=== PATIENT | female | born 1950 | race Caucasian/White ===

== ENCOUNTER → 2021-04-09 | Outpatient (CLI) | payer OTHER ==
[~2021-04-09] MED LIST: CALC600T PO; FLEXERIL; GLUC100018 PO; IBUP-1060 PO; OTHER
--- NOTE | 2021-04-09 13:07 | RAD ---
AP and Lateral Views of the Chest 04/09/2021 12:43 PM Indication: Reason: COPD Comparison: None Findings: Mild interstitial coarsening is seen. No focal infiltrate is identified. No pneumothorax or pleural effusion is seen. Heart size is normal. There is no evidence of pneumothorax or pleural effu lauri. Exaggerated thoracic kyphosis is seen secondary to chronic-appearing vertebral compression [facility] brady impression: 1. Nonspecific mild interstitial coarsening. 2. Exaggerated thoracic kyphosis secondary to chronic appearing thoracic vertebral body compression d eformities Electronically signed by: Daniel Hollins MD (04/09/2021 1:04 PM) [id number]
== END ==
LOC: RAD 12:31
PROVIDERS: ATTEND Internal Medicine Critical Care Medicine
DX: J44.9 Chronic obstructive pulmonary disease, unspecified (principal); M40.294 Other kyphosis, thoracic region
CPT/HCPCS: 71046

== ENCOUNTER → 2021-05-30 | Outpatient (CLI) | payer OTHER ==
--- NOTE | 2021-05-30 11:05 | RAD ---
PQRS Compliance Statement: One or more of the following individualized dose reduction techniques were utilized for this examinat ion: 1. Automated exposure control 2. Adjustment of the mA and/or kV according to patient size 3. Use of iterative reconstruction technique CT THORAX WO 05/30/2021 9:28 AM Indication: Interstitial lung disease COMPARISON: None available. TECHNIQUE: Multiple axial CT images of the chest were obtained without intravenous contrast. Coronal and sagittal reformats are provided. FINDINGS: Thyroid gland is normal in appearance. There are no pathologically enlarged axillary, mediastinal or hilar lymph nodes. Heart size is within normal limits. Thoracic aorta is normal in course and caliber. There is no significant pericardial e ffusion. Thoracic esophagus is normal in appearance. Anterior chest wall appears intact. Scattered calcified granulomas are present. There is a pleural-based nodule measuring 4 mm in the lat eral left lower lobe (series 3, image 31). There is no honeycombing. There is no traction bronchiecta sis. No groundglass opacities are identified. There is no significant air trapping.. There are no ple ural effusions, pulmonary vascular congestion or pneumothorax. Lungs are clear without focal airspace consolidation. Central airways are clear. Visualized portions of the upper abdomen are normal in appearance within limitations of a noncontrast examination. Post surgical changes are identified in the epigastric region of the abdomen. No suspicious osseous abnormality. No paraspinal soft tissue mass. IMPRESSION: 1. No findings to suggest specific subtype of interstitial lung disease. No focal airspace consolidat ion. 2. Scattered calcified granulomas are present. 4 mm pleural-based nodule identified in the left lower lobe laterally. Fleischner guidelines for incidentally detected pulmonary nodules suggests no routin e follow-up for low risk patients and optional CT at 12 months for high risk patients with solid nonc alcified pulmonary nodules less than 6 mm in size. Electronically signed by: Hoda Swann MD (05/30/2021 11:03 AM) [id number]
== END ==
LOC: CT 09:11
PROVIDERS: ATTEND Internal Medicine Critical Care Medicine
DX: J84.9 Interstitial pulmonary disease, unspecified (principal); R91.8 Other nonspecific abnormal finding of lung field
CPT/HCPCS: 71250